=== PATIENT | male | born 1960 | race Caucasian/White ===

== ENCOUNTER 2016-11-10 09:41 | Emergency (ER) | payer OTHER ==
[~2016-11-10] VITALS: Ht 182.9 cm; Wt 74.8 kg
[2016-11-10 09:45] VITALS: BP 115/76; PULSE 124; RESP 19; TEMP 99.5; O2SAT 96
--- NOTE | 2016-11-10 10:00 | NUR ---
TRIAGED AND BROUGHT BACK TO BED #8. REPORT GIVEN TO PATRICIA
[2016-11-10] MEDS ORDERED: IPRATROPIUM/ALBUTEROL SULFATE 3 ML AMPUL.NEB INH ONE (10:15)
[2016-11-10] MEDS ORDERED: methylPREDNISolone SOD SUCC/PF 62.5 MG/ML VIAL IVP ONE (10:15)
--- NOTE | 2016-11-10 10:23 | NUR ---
Placed on cardiac cath tech, blood pressure machine and pulse oximeter. To gown for exam. Side rails up.
--- NOTE | 2016-11-10 10:23 | NUR ---
ER at bedside examining patient.
--- NOTE | 2016-11-10 10:40 | NUR ---
DR KOROMA AT BEDSIDE FOR EVALUATION
--- NOTE | 2016-11-10 10:43 | NUR ---
PT C/O FLU-LIKE SYMPTOMS,COUGH,BODYACHE,SOB SINCE LAST NIGHT. AWAKE,ALERT, ORIENTED X4. TACHYCARIDA ON MONITOR,TACHYPENIA. WILLL CONTIUNE MONITOR.
--- NOTE | 2016-11-10 10:43 | NUR ---
# 18 gauge angiocath placed to RFA . Use of asceptic technique. Opsite placed over site. Blood return noted. Blood for lab drawn from site. Flushed with 10 cc of normal saline. No evidence of infiltration noted. Patient tolerated well.
[2016-11-10 10:44] LABS: EOSINOPHILS % (AUTO) 0.1 % (0.0-4.0); HEMATOCRIT 41.5 % (36-54); HEMOGLOBIN 13.9 g/dL (14.0-18.0); LYMPHOCYTES # (AUTO) 0.4 K/uL (1.0-5.5); LYMPHOCYTES % (AUTO) 2.4 % (20.5-51.5); MEAN CORPUSCULAR HEMOGLOBIN 30 pg (27-31); MEAN CORPUSCULAR HGB CONC 34 % (32-36); MEAN CORPUSCULAR VOLUME 89 fL (79.0-98.0); MONOCYTES # (AUTO) 0.5 K/uL (0.0-1.0); MONOCYTES % (AUTO) 3.1 % (1.7-9.3); PLATELET COUNT (AUTO) 294 K/uL (130-430); RED BLOOD CELL COUNT(AUTO) 4.68 MIL/uL (4.2-6.2); RED CELL DISTRIBUTION WIDTH 12.1 % (9.0-15.0); WHITE BLOOD COUNT (AUTO) 14.7 K/uL (4.8-10.8)
[2016-11-10 10:49] LABS: CALCIUM 8.7 mg/dL (8.4-11.0); CREATININE 0.92 mg/dL (0.55-1.30); POTASSIUM 3.8 mmol/L (3.5-5.1)
[2016-11-10 10:51] LABS: BASOPHILS % (AUTO) 0.1 % (0.0-2.0); NEUTROPHILS # (AUTO) 13.8 K/uL (1.8-7.7); NEUTROPHILS % (AUTO) 94.3 % (40.0-70.0)
[2016-11-10 10:52] LABS: INR 0.9 (0.80-1.20)
[2016-11-10 10:54] LABS: ALBUMIN 3.9 g/dL (3.4-4.8); TOTAL BILIRUBIN 1.4 mg/dL (0.0-1.0); TOTAL PROTEIN, SERUM 6.8 g/dL (6.4-8.3)
[2016-11-10] MEDS ORDERED: KETOROLAC TROMETHAMINE 30 MG VIAL IVP ONE (11:15)
[2016-11-10] MEDS ORDERED: PROMETHAZINE 6.25 MG/ CODEINE 10 MG/ 5 ML PO ONE (11:15)
[2016-11-10 12:09] VITALS: BP 133/79; PULSE 89; RESP 20; TEMP 98.7; O2SAT 96
--- NOTE | 2016-11-10 12:09 | NUR ---
Patient given written and verbal discharge instructions and verbalizes understanding. ER MD Renae discussed with patient the results and treatment provided. Patient in stable condition. ID arm band removed. IV catheter removed intact and dressing applied, no active bleeding. Rx of albuterol, azithromycin, promethazine/codeine, prednisone given. Patient educated on pain management and to follow up with PMD. Pain Scale 0/10. Opportunity for questions provided and answered.
== END 2016-11-10 12:09 | disposition home or self-care (01) ==
LOC: SED 09:41
DX: J20.9 Acute bronchitis, unspecified (principal); I10 Essential (primary) hypertension
CPT/HCPCS: 36415; 71010; 80053; 83605; 84484; 85025; 85610; 85730; 87040; 93005; 94640; 96374; 96375; 99285; J1885; J2930

== ENCOUNTER 2018-09-11 09:33 | Emergency (ER) | payer BC, OTHER ==
[~2018-09-11] VITALS: Ht 188 cm; Wt 77.1 kg
[2018-09-11 09:42] VITALS: BP_SYST 165
[2018-09-11] MEDS ORDERED: fentaNYL CITRATE/PF 100 MCG/2 ML AMP IM ONE (10:15)
[2018-09-11 11:34] VITALS: BP_SYST 165
== END 2018-09-11 11:32 | disposition home or self-care (01) ==
LOC: SED 09:33
DX: M54.9 Dorsalgia, unspecified (principal); W18.39XA Other fall on same level, initial encounter; Y93.89 Activity, other specified; Y92.89 Other specified places as the place of occurrence of the external cause; Y99.8 Other external cause status; I10 Essential (primary) hypertension
CPT/HCPCS: 71100; 96372; 99283; J3010

== ENCOUNTER 2021-06-02 15:36 | Inpatient (IN) | payer BC, SELFPAY ==
[~2021-06-02] VITALS: Ht 182.9 cm; Wt 77.6 kg
[2021-06-02 15:54] VITALS: BP_SYST 147
--- NOTE | 2021-06-02 15:54 | NUR ---
Placed in room 04 . Placed on environmental monitoring technician, blood pressure machine and pulse oximeter. To gown for exam. Side rails up. Report given to KAT Solis
--- NOTE | 2021-06-02 16:05 | NUR ---
PT BROUGHT IN BY FOR DELIRIUM TREMORS, LAST DRIN AT 10AMM TODAY. DRINKS ABOUT 6 BEERS A DAY WITH SEVERAL SHOTS TOO. HAS BEEN DRINKING SINCE THE AGE OF 16, HAS TRIED MULTIPLE TIMES TO STOP, WAS ABLE TO COUPLE OF TIMES, BUT RESUMED AFTER YEARS IF BEING SOBER. DENIES ANY ESOPHAGEAL VARICES, NO HISTORY OF ASCITES. PT AAOX3, VERBALIZING THAT HE WANTS TO STOP DRINKING, " I HATE THE WAY MY BODY FEELS" AT BEDSIDE. RESP EVEN AND UNLABORED MILD TREORS NOTED, CLEAR SPEECH. RESP EVEN AND UNLABORED, SKIN W/D/I, NORMAL IN COLOR. IV SL TO LEFT AC, BLOOD DRAWN.
[2021-06-02] MEDS ORDERED: LORazepam 2 MG/ML VIAL IVP ONE (16:30)
[2021-06-02] MEDS ORDERED: FOLIC ACID 1 MG, THIAMINE HCL 100 MG, MAGNESIUM SULFATE 1 GM, MVI 10 ML in NACL 0.9% 1,... IV ONE (16:30)
[2021-06-02 16:51] LABS: BASOPHILS % (AUTO) 0.3 % (0.0-2.0); EOSINOPHILS # (AUTO) 0.1 K/uL (0.0-0.4); EOSINOPHILS % (AUTO) 2.3 % (0.0-4.0); HEMATOCRIT 41.4 % (36-54); HEMOGLOBIN 14.7 g/dL (14.0-18.0); LYMPHOCYTES # (AUTO) 2.7 K/uL (1.0-5.5); LYMPHOCYTES % (AUTO) 49.4 % (20.5-51.5); MEAN CORPUSCULAR HEMOGLOBIN 33 pg (27-31); MEAN CORPUSCULAR HGB CONC 36 % (32-36); MEAN CORPUSCULAR VOLUME 92 fL (79.0-98.0); MONOCYTES # (AUTO) 0.4 K/uL (0.0-1.0); MONOCYTES % (AUTO) 7.4 % (1.7-9.3); NEUTROPHILS # (AUTO) 2.2 K/uL (1.8-7.7); NEUTROPHILS % (AUTO) 40.6 % (40.0-70.0); PLATELET COUNT (AUTO) 235 K/uL (130-430); RED BLOOD CELL COUNT(AUTO) 4.49 MIL/uL (4.2-6.2); RED CELL DISTRIBUTION WIDTH 13.4 % (9.0-15.0); WHITE BLOOD COUNT (AUTO) 5.4 K/uL (4.8-10.8)
[2021-06-02] MEDS ORDERED: THIAMINE HCL 100 MG/ML VIAL ONE (17:05)
[2021-06-02] MEDS ORDERED: MAGNESIUM SULFATE 1 GM/2 ML VIAL ONE (17:05)
[2021-06-02] MEDS ORDERED: MVI 10 ML VIAL IV ONE (17:05)
[2021-06-02] MEDS ORDERED: FOLIC ACID 5 MG/ML VIAL IV ONE (17:05)
[2021-06-02 17:12] LABS: CALCIUM 8.8 mg/dL (8.4-11.0); CREATININE 0.86 mg/dL (0.55-1.30); POTASSIUM 3.6 mmol/L (3.5-5.1)
[2021-06-02 17:22] LABS: ALBUMIN 4.1 g/dL (3.4-4.8); TOTAL BILIRUBIN 0.5 mg/dL (0.0-1.0)
[2021-06-02 17:30] LABS: INR 1.1 (0.80-1.20); PROTHROMBIN TIME 11.5 SECS (9.5-12.5)
--- NOTE | 2021-06-02 17:33 | NUR ---
PT WITH EYES CLOSED, IN NAD. RESP EVEN AND UNALABORED, VSS. AT BEDSIDE. BANANA BAG INFUSING VIA PUMP.
[2021-06-02] MEDS ORDERED: LIB25 PO (17:46)
--- NOTE | 2021-06-02 17:47 | NUR ---
Medication reconciliation completed with information provided by Patient. Any prior medication reconciliation on file was reviewed and corrected.
[2021-06-02] MEDS ORDERED: ONDANSETRON HCL 4 MG/2 ML VIAL IVP PRN (18:15)
[2021-06-02] MEDS ORDERED: ALBUTEROL SULFATE 0.083% 2.5 MG/3 ML VIAL.NEB INH PRN (18:15)
[2021-06-02] MEDS ORDERED: HYDROcodone/ACETAMIN 5-325 MG TAB (NORCO/ VICODIN) PO PRN (18:15)
[2021-06-02] MEDS ORDERED: chlordiazePOXIDE HCL 25 MG CAPSULE PO SCH (18:15)
[2021-06-02] MEDS ORDERED: MORPHINE 2 MG/ML INJ. SYRINGE IVP PRN (18:15)
[2021-06-02] MEDS ORDERED: PANTOPRAZOLE SODIUM 40 MG TAB PO ONE (18:15)
--- NOTE | 2021-06-02 19:00 | NUR ---
PT SEEN BY MD CORONA AT 1600.
--- NOTE | 2021-06-02 19:05 | NUR ---
RECEIVED REPORT FROM MATHEW. PT TO BE ADMITTED TO TELE. PT RESTING. AMBULATED TO RESTROOM. GAIT STEADY. BANANA BAG INFUSING WITHOUT DIFFICULTIES. VSS.
--- NOTE | 2021-06-02 19:10 | NUR ---
Patient will be admitted to care of GUNNER. Admitted to TELE unit. PENDING ASSIGNMENT. Belongings list completed. Complete and up to date summary report printed. SBAR report to be given at bedside with opportunity for questions.
--- NOTE | 2021-06-02 21:47 | NUR ---
Transfer to TELE via ACLS protocol. Licensed nurse present. IV present no signs or symptoms of infiltration.
--- NOTE | 2021-06-02 21:55 | NUR ---
ADMISSION NOTE Received patient from ER via gurney. Patient admitted with diagnosis of Alcohol withdrawal. Patient is awake, alert, oriented X 4. Patient oriented to hospital room, call light, toileting, pain management and safety-teach back done. Personal belongings checked and Belongings List documented. Call light within reach.
[2021-06-02] MEDS: NACL 0.9% 1,000 ML IV SCH (22:18)
--- NOTE | 2021-06-02 22:30 | NUR ---
INITIAL RN NOTES Received pt from ED for ETOH withdrawal. Pt AAOx4, no s/s distress noted. Pt states his last drink was at 10AM today and usually drinks 6 cans of beer a day. IVF NS @100 starting L. AC 20G clear and patent. Pt ambulated to bathroom with standby assist. Oriented to call light use and to call nurse for assistance to bathroom. Pt verbalized understanding. To monitor.
[2021-06-02 22:31] VITALS: BP_SYST 153
[2021-06-02] MEDS ORDERED: FLU VACC QS2021-22(6MOS UP)/PF 0.5 ML/SYR SYRINGE I.M. PRN (22:45)
[2021-06-02] MEDS: LORazepam 2 MG/ML VIAL IVP PRN (22:52)
--- NOTE | 2021-06-02 23:30 | NUR ---
Librium Pt awake having DT's and hands shaking. Medicated w/ Librium 25mg PO. Seizure precaution in place. Call light within reach. Bed low, locked, siderails up x2, alarm on. To monitor.
[2021-06-02] MEDS ORDERED: chlordiazePOXIDE HCL 25 MG CAPSULE ONE (23:33)
[2021-06-03 00:31] VITALS: BP_SYST 163
[2021-06-03] MEDS: LORazepam 2 MG/ML VIAL IVP PRN (02:01)
--- NOTE | 2021-06-03 02:01 | NUR ---
IV ADMINISTRATION END TIME (Observation Patients ONLY): IV Ativan given 200 and ended at 200
[2021-06-03 03:13] VITALS: BP_SYST 153
--- NOTE | 2021-06-03 06:30 | NUR ---
Closing notes Pt asleep, easily awakens, no s/s distress noted. No DTs noted at this time. IVF infusing at ordered rate L. arm clear and patent. Call light within reach. Safety maintained with padded siderails. To endorse to AM nurse.
[2021-06-03] MEDS: NACL 0.9% 1,000 ML IV SCH ×2 (06:45→08:10)
--- NOTE | 2021-06-03 06:45 | NUR ---
IV ADMINISTRATION END TIME (Observation Patients ONLY): IV infusion of NS started at 0645 and ended at 0810
[2021-06-03 06:48] LABS: BASOPHILS # (AUTO) 0.1 K/uL (0.0-0.2); BASOPHILS % (AUTO) 2.5 % (0.0-2.0); EOSINOPHILS # (AUTO) 0.3 K/uL (0.0-0.4); EOSINOPHILS % (AUTO) 5.7 % (0.0-4.0); HEMATOCRIT 39.5 % (36-54); HEMOGLOBIN 13.6 g/dL (14.0-18.0); LYMPHOCYTES % (AUTO) 42.8 % (20.5-51.5); MEAN CORPUSCULAR HEMOGLOBIN 32 pg (27-31); MEAN CORPUSCULAR HGB CONC 34 % (32-36); MEAN CORPUSCULAR VOLUME 94 fL (79.0-98.0); MONOCYTES # (AUTO) 0.4 K/uL (0.0-1.0); MONOCYTES % (AUTO) 8.5 % (1.7-9.3); NEUTROPHILS # (AUTO) 1.9 K/uL (1.8-7.7); NEUTROPHILS % (AUTO) 40.5 % (40.0-70.0); PLATELET COUNT (AUTO) 173 K/uL (130-430); RED BLOOD CELL COUNT(AUTO) 4.21 MIL/uL (4.2-6.2); RED CELL DISTRIBUTION WIDTH 13.4 % (9.0-15.0); WHITE BLOOD COUNT (AUTO) 4.7 K/uL (4.8-10.8)
[2021-06-03 07:37] LABS: ALBUMIN 3.5 g/dL (3.4-4.8); CALCIUM 7.9 mg/dL (8.4-11.0); CREATININE 0.68 mg/dL (0.55-1.30); POTASSIUM 3.5 mmol/L (3.5-5.1)
--- NOTE | 2021-06-03 07:40 | NUR ---
Patient resting comfortably in bed with no distress noted; denies any pain at this time. Stable.
[2021-06-03 07:52] LABS: TOTAL BILIRUBIN 1.4 mg/dL (0.0-1.0)
[2021-06-03 08:10] VITALS: BP_SYST 136
--- NOTE | 2021-06-03 08:10 | NUR ---
IV ADMINISTRATION END TIME (Observation Patients ONLY): IV infusion of NS started at 0810.
--- NOTE | 2021-06-03 08:23 | NUR ---
Scheduled po medication given per order. Patient stable at this time.
--- NOTE | 2021-06-03 11:45 | NUR ---
Patient ambulated with assist to bathroom and back to bed. Patient stable.
[2021-06-03 12:23] VITALS: BP_SYST 148
--- NOTE | 2021-06-03 13:25 | NUR ---
Patient assisted to bathroom.
[2021-06-03 20:00] VITALS: BP_SYST 141
--- NOTE | 2021-06-03 22:00 | NUR ---
Mobility Ambulate with steady safety/fall precaution initiated, call light within reach , anticipate needs.
[2021-06-04] VITALS: BP_SYST 138
[2021-06-04] MEDS: NACL 0.9% 1,000 ML IV SCH ×2 (00:15→15:18)
--- NOTE | 2021-06-04 03:28 | NUR ---
PATIENT RESTING: Patient resting quietly. No acute distress noted. Vital signs within normal range.
[2021-06-04] MEDS: LORazepam 2 MG/ML VIAL IVP PRN (03:39)
--- NOTE | 2021-06-04 03:39 | NUR ---
IV ADMINISTRATION END TIME (Observation Patients ONLY): IV Ativan started at 338 and ended at 338.
--- NOTE | 2021-06-04 04:00 | NUR ---
Cardio Patient resting and relax with episode of sinus tachycardia 130 to 140 min , denies any chest pain ,Dr Granados informed .
[2021-06-04] MEDS ORDERED: DILTIAZEM HCL 25 MG/5 ML VIAL IVP ONE (04:15)
--- NOTE | 2021-06-04 04:27 | NUR ---
IV ADMINISTRATION END TIME (Observation Patients ONLY): IV Cardizem started at 426 and ended at 427.
[2021-06-04 04:31] VITALS: BP_SYST 117
--- NOTE | 2021-06-04 06:00 | NUR ---
Patient calm no tremors if ambulates to bathroom heart rate goes up to 130/min , in bed heart rate 80/min will monitor
--- NOTE | 2021-06-04 07:35 | NUR ---
AM ROUNDS: PATIENT SLEEPING DURING ROUNDS. IV FLUIDS RUNNING AT RIGHT FOREARM INTACT. NOT IN ANY DISTRESS. CALL LIGHT WITH IN REACH. BED LOCKED AT LOWEST POSITION. BED ALARM ON.CONTINUE TO MONITOR.
[2021-06-04 08:00] VITALS: BP_SYST 122
--- NOTE | 2021-06-04 10:30 | NUR ---
AGILE JAVA DEVELOPER received consult for Pt. regarding alcohol abuse, met with Pt. at bedside he was agreeable to speak to AGILE JAVA DEVELOPER. Pt. was admitted for ETOH w/d. Pt. reported he came to ER for severe w/d sxs, DTs because he decided to wean himself of. AGILE JAVA DEVELOPER discussed with Pt. treatment options for ETOH, psychoeducation on MAT Vivitrol was discussed and local providers, recommended he request a list of providers form his insurance for addiction medicine services. AGILE JAVA DEVELOPER provided resources to ETOH abuse Tx for Pt. to consider. Pt. was receptive of the resources. Additionally, he requested a letter for his employer. No further inquiry at this time.
[2021-06-04 12:24] VITALS: BP_SYST 129
[2021-06-04 16:19] VITALS: BP_SYST 126
--- NOTE | 2021-06-04 17:30 | NUR ---
SPOKE WITH MD: DR GREGG SPOKE WITH PT'S PRATIK AND DISCUSSED PLAN OF CARE. Addendum: 06/04/21 at 1840 by Brianda Simpson RN CORRECTED ABOVE NOTES: NOT INTENDED TO ABOVE PATIENT.
--- NOTE | 2021-06-04 18:33 | NUR ---
EVENING ROUNDS: PATIENT STATED FELT MORE BETTER. HAD A DINNER. NO ACUTE DISTRESS.SAFETY MEASURES RENDERED.
[2021-06-04 19:49] VITALS: BP_SYST 129
[2021-06-04] MEDS ORDERED: TEMAZEPAM 7.5 MG CAPSULE PO ONE (22:00)
[2021-06-05] MEDS: NACL 0.9% 1,000 ML IV SCH (00:03)
[2021-06-05 01:06] VITALS: BP_SYST 135
--- NOTE | 2021-06-05 02:08 | NUR ---
PATIENT RESTING: Patient resting quietly. No acute distress noted.
--- NOTE | 2021-06-05 06:18 | NUR ---
Slept well as verbalized , telemetry NSR @70 /min.
--- NOTE | 2021-06-05 07:50 | NUR ---
Patient resting comfortably in bed with no distress noted. Patient stable.
[2021-06-05 08:50] VITALS: BP_SYST 143
--- NOTE | 2021-06-05 08:50 | NUR ---
Patient refused morning medication. Patient resting quietly in bed at this time; stable.
--- NOTE | 2021-06-05 10:30 | NUR ---
Patient states he is ready to leave the hospital. Advised to wait to be seen by Dr. Dennis this am. Patient agreed to stay. Emptied 650mls of clear, straw colored urine from urinal. Patient stable.
--- NOTE | 2021-06-05 12:00 | NUR ---
Patient stable with Dr. Dennis at bedside.
[2021-06-05 12:55] VITALS: BP_SYST 132
[2021-06-05 13:03] VITALS: BP_SYST 132
--- NOTE | 2021-06-05 13:30 | NUR ---
Discharge instructions Both written and verbal discharge instructions given to patient and , Jeannine. Both verbalized understanding of instructions Patient given medication reconciliation form. Exit Care provided. Patient verbalized understanding. MD discussed with patient the results and treatment provided. Ambulatory with steady gait for discharge to home. Patient in stable condition. ID band removed. Peripheral IV catheter removed intact with minimal bleeding; dressing applied to site. All belongings with patient.
--- NOTE | 2021-06-05 13:45 | NUR ---
Discharge Patient discharged to home in stable condition; accompanied by . No distress noted at time of discharge.
== END 2021-06-05 13:45 | disposition home or self-care (01) | DRG 897 ==
LOC: SED 15:36 → STU 18:06 → OBSVTOIN 06-04 12:04
PROVIDERS: ADMIT Internal Medicine Hospice and Palliative Medicine; ATTEND Internal Medicine Hospice and Palliative Medicine
DX: F10.129 Alcohol abuse with intoxication, unspecified (principal); F10.139 Alcohol abuse with withdrawal, unspecified; I10 Essential (primary) hypertension; Y90.9 Presence of alcohol in blood, level not specified; Z20.822 Contact with and (suspected) exposure to COVID-19
CPT/HCPCS: 36415; 76376; 80053; 82550; 83735; 84484; 85025; 85610-TC; 85730-TC; 93005; 93306; 96365; 96366; 96375; 97116-GP; 99285; G0378; G0482; J2060; J3411; J3475; J3490